=== PATIENT | female | born 1995 | race Caucasian/White ===

== ENCOUNTER 2016-07-19 09:21 | Emergency (ER) | payer BC, MEDICAID ==
[~2016-07-19 09:21] MED LIST: AZO-SULFISOXAZO1 TA1 PO; DAILY VITAMIN1 TAB PO; KEPPRA 500MG500 MG PO; MACROBID 100 M100 MG PO; TRILEPTAL 300M300 MG PO; YAZ 28 3 MG-0.01 TAB PO
[2016-07-19] MEDS ORDERED: KEPPRA 500MG500 MG PO (09:39)
[2016-07-19] MEDS ORDERED: TRILEPTAL 300M300 MG PO (09:40)
[2016-07-19] MEDS ORDERED: MIRENA52 MG IU (10:22)
[2016-07-19 11:30] VITALS: BP 138/79
== END 2016-07-19 11:36 | disposition home or self-care (01) ==
LOC: ED 09:21
DX: G40.909 Epilepsy, unspecified, not intractable, without status epilepticus (principal)

== ENCOUNTER 2016-11-11 22:15 | Observation (INO) | payer BC, MEDICAID ==
[~2016-11-11] VITALS: Ht 167.6 cm; Wt 97.7 kg
[~2016-11-11 22:15] MED LIST changes: +MIRENA52 MG IU
[2016-11-12 00:25] VITALS: BP 130/65
[2016-11-12 00:33] VITALS: BP 130/65
[2016-11-12 03:41] VITALS: BP 113/66
[2016-11-12 06:44] VITALS: BP 111/67
== END 2016-11-12 10:05 | disposition home or self-care (01) ==
LOC: ED 22:15 → MED/SURG 23:59
PROVIDERS: ADMIT Family Medicine
DX: G40.919 Epilepsy, unspecified, intractable, without status epilepticus (principal); E87.6 Hypokalemia; Z72.0 Tobacco use; Z86.61 Personal history of infections of the central nervous system; Z88.2 Allergy status to sulfonamides; R10.9 Unspecified abdominal pain; Z86.73 Personal history of transient ischemic attack (TIA), and cerebral infarction without residual deficits; G09 Sequelae of inflammatory diseases of central nervous system; G93.89 Other specified disorders of brain
CPT/HCPCS: G0378

== ENCOUNTER 2017-04-26 19:50 | Emergency (ER) | payer BC ==
[2017-04-26] MEDS ORDERED: TOPAMAX25 MG PO (20:21)
[2017-04-26] MEDS ORDERED: BACTRIM DS TAB1 EACH PO (22:03)
[2017-04-26 23:15] VITALS: BP 116/64
== END 2017-04-26 22:33 | disposition home or self-care (01) ==
LOC: ED 19:50
DX: L03.011 Cellulitis of right finger (principal); F17.210 Nicotine dependence, cigarettes, uncomplicated; G40.909 Epilepsy, unspecified, not intractable, without status epilepticus; Z88.8 Allergy status to other drugs, medicaments and biological substances
CPT/HCPCS: A4550

== ENCOUNTER 2017-11-23 08:00 | Outpatient (RCR) | payer BC ==
[~2017-11-23 08:00] MED LIST changes: +BACTRIM DS TAB1 EACH PO; +TOPAMAX25 MG PO
== END 2017-11-23 08:30 | disposition home or self-care (01) ==
LOC: OT 08:00
DX: Z48.811 Encounter for surgical aftercare following surgery on the nervous system (principal); F80.1 Expressive language disorder; R29.810 Facial weakness; G40.019 Localization-related (focal) (partial) idiopathic epilepsy and epileptic syndromes with seizures of localized onset, intractable, without status epilepticus

== ENCOUNTER 2017-11-23 08:30 | Outpatient (RCR) | payer BC | END 2017-11-23 09:00 | disposition home or self-care (01) | LOC: PT 08:30 | DX: Z48.811 Encounter for surgical aftercare following surgery on the nervous system (principal); R29.898 Other symptoms and signs involving the musculoskeletal system; R56.9 Unspecified convulsions ==

== ENCOUNTER 2024-05-06 14:37 | Emergency (ER) | payer MEDICAID ==
[~2024-05-06] VITALS: Ht 167.6 cm; Wt 104.5 kg
[2024-05-06] MEDS ORDERED: Ketorolac 30 MG/ML VIAL IM ONE (15:15)
[2024-05-06] MEDS ORDERED: Cyclobenzaprine 10 MG TAB PO ONE (15:15)
[2024-05-06] MEDS ORDERED: Lidocaine 4% Topical Patch TP ONE (15:15)
[2024-05-06 15:39] LABS: BASO # 0.02 K/mm3 (0.02-0.10); EOS # 0.14 K/mm3 (0.04-0.40); EOS % 2.1 % (1.0-5.0); HEMOGLOBIN 12.3 g/dL (12.5-16.0); MEAN CELL VOLUME 77 fl (78-100); MEAN CORPUSCULAR HEMOGLOBIN 25 pg (27-31); MEAN CORPUSCULAR HGB CONC 32 g/dL (33-37); MEAN PLATELET VOLUME 10.1 fl (7.4-10.4); MONO # 0.39 K/mm3 (0.20-0.80); PLATELET COUNT 285 K/mm3 (130-400); RED BLOOD COUNT 4.96 M/mm3 (4.10-5.30); WHITE BLOOD COUNT 6.7 K/mm3 (4.8-10.8)
[2024-05-06 15:42] LABS: PH-URINE 5.5 (5.0 - 8.0); URINE APPEARANCE CLEAR (CLEAR); URINE BILIRUBIN NEGATIVE (NEGATIVE); URINE BLOOD NEGATIVE (NEGATIVE); URINE COLOR YELLOW (YELLOW); URINE GLUCOSE NEGATIVE (NEGATIVE); URINE KETONE NEGATIVE (NEGATIVE); URINE LEUKOCYTE ESTERASE NEGATIVE (NEGATIVE); URINE MUCUS PRESENT (NOT PRESENT); URINE NITRATE NEGATIVE (NEGATIVE); URINE PROTEIN(semi-quant) NEGATIVE (NEGATIVE)
[2024-05-06 15:45] LABS: ALBUMIN 4.5 g/dL (3.5-5.0)
[2024-05-06 15:47] LABS: TOTAL PROTEIN 8.6 g/dL (6.4-8.3)
[2024-05-06 16:05] LABS: TOTAL BILIRUBIN 0.3 mg/dL (0.2-1.2)
[2024-05-06] MEDS ORDERED: CYCLOBENZAPRINE10 M1 PO (16:35)
[2024-05-06 16:50] VITALS: BP 125/93
== END 2024-05-06 16:50 | disposition home or self-care (01) ==
LOC: ED 14:37
PROVIDERS: Physician Assistant
DX: M54.50 Low back pain, unspecified (principal)
CPT/HCPCS: J1885

== ENCOUNTER 2024-05-09 10:04 | Emergency (ER) | payer OTHER ==
[~2024-05-09] VITALS: Ht 167.6 cm; Wt 104.5 kg
[~2024-05-09 10:04] MED LIST changes: +CYCLOBENZAPRINE10 M1 PO
[2024-05-09] MEDS ORDERED: Baclofen 10 MG TAB PO ONE (10:45)
[2024-05-09] MEDS ORDERED: Ketorolac 30 MG/ML VIAL IM ONE (10:45)
[2024-05-09] MEDS ORDERED: BACLOFEN5 MG PO (11:27)
[2024-05-09 11:34] VITALS: BP 134/84
== END 2024-05-09 11:42 | disposition home or self-care (01) ==
LOC: ED 10:04
DX: M54.50 Low back pain, unspecified (principal); M25.551 Pain in right hip; M25.552 Pain in left hip
CPT/HCPCS: J1885